=== PATIENT | female | born 1965 | race Caucasian/White ===

== ENCOUNTER → 2019-08-31 13:16 | Outpatient (BNVA) | payer SELFPAY | PROVIDERS: Family Provider Nurse Practitioner Family; PCP Nurse Practitioner Family; Visit Provider Anesthesiology | DX: G89.29 Other chronic pain (principal); M54.41 Lumbago with sciatica, right side; M54.42 Lumbago with sciatica, left side; M47.817 Spondylosis without myelopathy or radiculopathy, lumbosacral region; M51.37 Other intervertebral disc degeneration, lumbosacral region; Z79.891 Long term (current) use of opiate analgesic | CPT/HCPCS: 99213; 99214 ==

== ENCOUNTER 2019-10-06 12:28 | Outpatient (CLI) | payer SELFPAY ==
--- NOTE | 2019-10-06 13:45 | MR_ITS ---
WS: [id number] MRI BRAIN WITH AND WITHOUT CONTRAST HISTORY: headache, tremors COMPARISON: None available. TECHNIQUE: Multiplanar imaging performed through the brain with Prohance 17 ml's IV. No acute infarcts are seen. Zee-white matter differentiation is well preserved. There are a few scat tered T2 and FLAIR signal hyperintensities from chronic ischemic small vessel disease. No prior infar ct or hemorrhage. No susceptibility artifacts or prior lacunar infarcts. Ventricles and extra-axial spaces are normal. Clivus and pituitary gland are normal. Visualized posterior fossa and brainstem are also normal. Postcontrast images are negative for masses or vascular malformations. Dural venous sinuses are normal. Paranasal sinuses: Well aerated with no significant disease. Mastoid air cells: Normal. Calvarium and scalp: Normal. MR/MR head wo/w con [id number] IMPRESSION: 1. No acute infarct or hemorrhage. 2. Minimal chronic microvascular ischemic disease. 3. No mass or significant atrophy.
== END 2019-10-06 12:29 | disposition home or self-care (01) ==
PROVIDERS: Family Provider Nurse Practitioner Family; PCP Nurse Practitioner Family; Visit Provider Nurse Practitioner Family
DX: R25.1 Tremor, unspecified (principal); R51 Headache
CPT/HCPCS: 70553; A9579

== ENCOUNTER → 2019-10-19 12:05 | Outpatient (BNVA) | payer SELFPAY | PROVIDERS: Family Provider Nurse Practitioner Family; PCP Nurse Practitioner Family; Referring Provider Nurse Practitioner Family; Visit Provider Specialist | DX: R25.1 Tremor, unspecified (principal); M47.816 Spondylosis without myelopathy or radiculopathy, lumbar region | CPT/HCPCS: 99204; 99214 ==

== ENCOUNTER → 2019-10-28 08:22 | Outpatient (BNVA) | payer SELFPAY | PROVIDERS: Family Provider Nurse Practitioner Family; PCP Nurse Practitioner Family; Visit Provider Nurse Practitioner | DX: M54.42 Lumbago with sciatica, left side (principal); M54.41 Lumbago with sciatica, right side; Z79.891 Long term (current) use of opiate analgesic | CPT/HCPCS: 99213 ==

== ENCOUNTER → 2020-02-23 10:33 | Outpatient (BNVA) | payer SELFPAY | PROVIDERS: Family Provider Nurse Practitioner Family; PCP Nurse Practitioner Family; Visit Provider Nurse Practitioner | DX: M51.37 Other intervertebral disc degeneration, lumbosacral region (principal); M54.42 Lumbago with sciatica, left side; M54.41 Lumbago with sciatica, right side; Z79.891 Long term (current) use of opiate analgesic | CPT/HCPCS: 99213 ==

== ENCOUNTER → 2020-04-14 09:05 | Outpatient (BNVA) | payer SELFPAY | PROVIDERS: Family Provider Nurse Practitioner Family; PCP Nurse Practitioner Family; Visit Provider Nurse Practitioner | DX: G89.29 Other chronic pain (principal); M54.41 Lumbago with sciatica, right side; M54.42 Lumbago with sciatica, left side; M47.816 Spondylosis without myelopathy or radiculopathy, lumbar region; Z79.891 Long term (current) use of opiate analgesic | CPT/HCPCS: 99213 ==

== ENCOUNTER → 2020-06-16 08:53 | Outpatient (BNVA) | payer SELFPAY | PROVIDERS: Family Provider Nurse Practitioner Family; PCP Nurse Practitioner Family; Visit Provider Anesthesiology | DX: G89.29 Other chronic pain (principal); M54.41 Lumbago with sciatica, right side; M54.42 Lumbago with sciatica, left side; M47.816 Spondylosis without myelopathy or radiculopathy, lumbar region; M47.817 Spondylosis without myelopathy or radiculopathy, lumbosacral region; M51.37 Other intervertebral disc degeneration, lumbosacral region; Z79.891 Long term (current) use of opiate analgesic | CPT/HCPCS: 99214 ==

== ENCOUNTER → 2020-07-27 08:48 | Outpatient (BNVA) | payer SELFPAY | PROVIDERS: Family Provider Nurse Practitioner Family; PCP Nurse Practitioner Family; Visit Provider Anesthesiology | DX: G89.29 Other chronic pain (principal); M54.41 Lumbago with sciatica, right side; M54.42 Lumbago with sciatica, left side; M47.816 Spondylosis without myelopathy or radiculopathy, lumbar region; M47.817 Spondylosis without myelopathy or radiculopathy, lumbosacral region; M51.37 Other intervertebral disc degeneration, lumbosacral region; Z79.891 Long term (current) use of opiate analgesic | CPT/HCPCS: 99214 ==

== ENCOUNTER → 2020-09-28 10:28 | Outpatient (BNVA) | payer SELFPAY | PROVIDERS: Family Provider Nurse Practitioner Family; PCP Nurse Practitioner Family; Visit Provider Anesthesiology | DX: G89.29 Other chronic pain (principal); M54.41 Lumbago with sciatica, right side; M54.42 Lumbago with sciatica, left side; M47.817 Spondylosis without myelopathy or radiculopathy, lumbosacral region; M51.37 Other intervertebral disc degeneration, lumbosacral region; M47.816 Spondylosis without myelopathy or radiculopathy, lumbar region; Z79.891 Long term (current) use of opiate analgesic | CPT/HCPCS: 99213 ==

== ENCOUNTER → 2020-11-09 00:01 | Outpatient (BNVA) | payer SELFPAY | PROVIDERS: Family Provider Nurse Practitioner Family; PCP Nurse Practitioner Family; Visit Provider Nurse Practitioner Family | DX: Z01.89 Encounter for other specified special examinations (principal) | CPT/HCPCS: 81003 ==

== ENCOUNTER → 2020-11-09 10:23 | Outpatient (BNVA) | payer SELFPAY | PROVIDERS: Family Provider Nurse Practitioner Family; PCP Nurse Practitioner Family; Visit Provider Nurse Practitioner Family | DX: E11.9 Type 2 diabetes mellitus without complications (principal); Z79.891 Long term (current) use of opiate analgesic; E83.42 Hypomagnesemia; R53.1 Weakness; M54.41 Lumbago with sciatica, right side; M54.42 Lumbago with sciatica, left side; G89.29 Other chronic pain; M17.0 Bilateral primary osteoarthritis of knee | CPT/HCPCS: 80053; 80061; 81003; 82306; 83036; 83735; 84443; 85025 ==

== ENCOUNTER 2020-11-22 13:20 | Outpatient (CLI) | payer SELFPAY ==
--- NOTE | 2020-11-22 13:45 | MR_ITS ---
WS: [id number] MRI LUMBAR SPINE NONCONTRAST HISTORY: M51.37 - Other intervertebral disc degeneration, lumbosacral region COMPARISON: 09/15/2018 TECHNIQUE: Sagittal and axial multisequence imaging is submitted. Mild straightening of the normal lumbar lordosis. No marrow edema or fracture. Mild disc space narrowing and desiccation at L3-4 and L4-5. Conus terminates normally at L1. L1-L2: Normal. L2-L3: Normal. L3-L4: Mild annular disc bulging with mild ligamentum flavum hypertrophy and facet arthritis. Disc pr otrusion with annular fissure in the RIGHT foramen contacting the very undersurface of the L3 nerve r oot. Slight progression since the prior study. Small amount of fluid in the facet joints. L4-L5: Mild annular disc bulging and osteophytic ridging with ligamentum flavum hypertrophy. Mild adarsh tral and bilateral foraminal stenosis. Moderate encroachment into the lateral recesses with disc cont acting the L5 nerve roots in the lateral recesses. Very similar to the prior study. L5-S1: No stenosis. MR/MR lumbar spine wo con* [id number] IMPRESSION: 1. No significant progression of stenosis since the prior examination. 2. Moderate encroachment into the lateral recesses at L4-5 with mild contact o n the L5 nerve roots. 3. Broad-based disc protrusion with annular fissures in the RIGHT foramen of L 3-4 with mild contact on the L3 nerve root. 4. Mild foraminal stenosis on the RIGHT at L3-4. 5. Mild central and bilateral foraminal stenosis at L4-5.
== END 2020-11-22 13:21 | disposition home or self-care (01) ==
LOC: RADSHAW 13:22
PROVIDERS: Family Provider Nurse Practitioner Family; PCP Nurse Practitioner Family; Visit Provider Nurse Practitioner Family
DX: M51.37 Other intervertebral disc degeneration, lumbosacral region (principal); M48.061 Spinal stenosis, lumbar region without neurogenic claudication; M51.26 Other intervertebral disc displacement, lumbar region
CPT/HCPCS: 72148

== ENCOUNTER → 2020-11-29 13:04 | Outpatient (BNVA) | payer SELFPAY | PROVIDERS: Family Provider Nurse Practitioner Family; PCP Nurse Practitioner Family; Visit Provider Nurse Practitioner | DX: G89.29 Other chronic pain (principal); M54.41 Lumbago with sciatica, right side; M54.42 Lumbago with sciatica, left side; M47.817 Spondylosis without myelopathy or radiculopathy, lumbosacral region; M51.37 Other intervertebral disc degeneration, lumbosacral region; M17.0 Bilateral primary osteoarthritis of knee; Z79.891 Long term (current) use of opiate analgesic | CPT/HCPCS: 99213 ==

== ENCOUNTER → 2020-11-30 11:39 | Outpatient (BNVA) | payer SELFPAY | PROVIDERS: Family Provider Nurse Practitioner Family; PCP Nurse Practitioner Family; Visit Provider Nurse Practitioner Family | DX: E11.9 Type 2 diabetes mellitus without complications (principal); R94.4 Abnormal results of kidney function studies; M54.41 Lumbago with sciatica, right side; M54.42 Lumbago with sciatica, left side; G89.29 Other chronic pain; M51.36 Other intervertebral disc degeneration, lumbar region; L30.9 Dermatitis, unspecified | CPT/HCPCS: 81003; 82570; 84156 ==

== ENCOUNTER → 2020-12-05 13:28 | Outpatient (BNVA) | payer SELFPAY | PROVIDERS: Family Provider Nurse Practitioner Family; PCP Nurse Practitioner Family; Referring Provider Nurse Practitioner Family; Visit Provider Orthopaedic Surgery | DX: M54.42 Lumbago with sciatica, left side (principal) | CPT/HCPCS: 72110 ==

== ENCOUNTER 2020-12-18 06:00 | Outpatient (RCR) | payer SELFPAY | END 2020-12-22 23:59 | disposition home or self-care (01) | LOC: WPT 06:00 | PROVIDERS: Family Provider Nurse Practitioner Family; PCP Nurse Practitioner Family; Referring Provider Nurse Practitioner Family; Visit Provider Nurse Practitioner Family | DX: R53.1 Weakness (principal); M54.41 Lumbago with sciatica, right side; M54.42 Lumbago with sciatica, left side; G89.29 Other chronic pain | CPT/HCPCS: 97110; 97161 ==

== ENCOUNTER → 2021-01-09 08:21 | Outpatient (BNVA) | payer SELFPAY | PROVIDERS: Family Provider Nurse Practitioner Family; PCP Nurse Practitioner Family; Visit Provider Nurse Practitioner | DX: G89.29 Other chronic pain (principal); M54.41 Lumbago with sciatica, right side; M54.42 Lumbago with sciatica, left side; M47.817 Spondylosis without myelopathy or radiculopathy, lumbosacral region; M47.816 Spondylosis without myelopathy or radiculopathy, lumbar region; M25.552 Pain in left hip; M17.0 Bilateral primary osteoarthritis of knee; Z79.891 Long term (current) use of opiate analgesic | CPT/HCPCS: 99213 ==

== ENCOUNTER → 2021-03-06 08:53 | Outpatient (BNVA) | payer SELFPAY | PROVIDERS: PCP Nurse Practitioner Family; Visit Provider Nurse Practitioner | DX: G89.29 Other chronic pain (principal); M54.42 Lumbago with sciatica, left side; M54.41 Lumbago with sciatica, right side; M47.816 Spondylosis without myelopathy or radiculopathy, lumbar region; M47.817 Spondylosis without myelopathy or radiculopathy, lumbosacral region; M17.0 Bilateral primary osteoarthritis of knee; Z79.891 Long term (current) use of opiate analgesic | CPT/HCPCS: 99214 ==

== ENCOUNTER 2021-03-21 11:00 | Emergency (ER) | payer OTHER, SELFPAY ==
[2021-03-21 12:31] VITALS: BP 154/89; PULSE 81; RESP 16; TEMP 37.2; O2SAT 100; BMI 30.4
[2021-03-21 16:25] LABS: Basophils % 0.5 %; Eosinophils # 0.1 10^3/uL (0.0-0.8); Eosinophils % 1.9 %; Hematocrit 48.5 % (37.0-47.0); Hemoglobin 15.6 g/dL (11.5-15.3); Lymphocytes # 1.5 10^3/uL (0.8-4.8); Lymphocytes % 25.6 %; Mean Corpuscular HGB Conc 32.2 g/dL (30.0-36.0); Mean Corpuscular Hemoglobin 30.3 pg (28.0-34.0); Mean Corpuscular Volume 94.2 fL (81-99); Mean Platelet Volume 11.4 fL (7.4-10.4); Monocytes # 0.5 10^3/uL (0.2-0.9); Monocytes % 9.2 %; Neutrophils # 3.68 10^3/uL (1.8-7.7); Neutrophils % 62.6 %; Nucleated Red Blood Cells % 0 %; Platelet Count 285 10^3/cmm (130-400); Red Blood Count 5.15 10^6/uL (4.1-5.3); Red Cell Distribution Width 12.6 % (12.1-15.1); White Blood Count 5.9 10^3/uL (4.0-10.0)
[2021-03-21 16:58] LABS: Alanine Aminotransferase 14 U/L (0-33); Albumin Level 4.5 g/dL (3.5-5.2); Alkaline Phosphatase 69 IU/L (35-105); Anion Gap 16.2 (5-19); Aspartate Amino Transferase 13 U/L (0-32); Blood Urea Nitrogen 15 mg/dL (6-20); Calcium 9.2 mg/dL (8.5-10.5); Carbon Dioxide 26 mmol/L (22-29); Chloride 103 mmol/L (98-107); Globulin 3.1 g/dL (1.3-4.6); Glomerular Filtration Rate 86.6 mL/min (90-130); Glucose 161 mg/dL (65-115); Osmolality Calculated 296 mOsm/kg (285-295); Potassium 4.2 mmol/L (3.5-5.1); Sodium 141 mmol/L (136-145); Total Bilirubin 0.5 mg/dL (0.15-1.2); Total Protein 7.6 g/dL (6.6-8.7)
--- NOTE | 2021-03-21 17:30 | W.ED.ABDPA2 ---
HPI - Abdominal Pain General: Chief Complaint: Abdominal Pain Stated Complaint: NAUSEA, DIZZINESS Time Seen by Provider: 03/21/21 17:28 History of Present Illness: HPI narrative: Patient is a 55-year-old female comes to the ED with abdominal pain nausea. Patient says symptoms started approximately 2 weeks ago. She says over the last week her symptoms have gotten worse and more consistent. She has been unable to keep any food or fluids down. She says her abdominal pain is in the right upper quadrant and she rates it a 9 out of 10 currently. Denies any fever, shortness of breath, chest pains, bowel symptoms or hematuria. Denies any history of gallbladder issues. Associated Symptoms: Reports nausea and vomiting; Denies chills, constipation, diarrhea, dysuria, fever(s), hematochezia and hematuria Review of Systems Const: Denies: fever(s), chills or fatigue Eyes: Denies: change in vision or eye discomfort ENMT: Denies: throat pain, odynophagia, nasal discharge or nasal congestion Card: Denies: chest pain, palpitations, edema, swelling of feet/ankles, dyspnea on exertion or orthopnea Resp: Denies: dyspnea, productive cough or non-productive cough GI: Reports: abdominal pain, nausea and vomiting; Denies: diarrhea, constipation or hematochezia : Denies: flank pain, dysuria or hematuria Musc: Denies: neck pain, back pain or extremity swelling Skin/Breast: Denies: rash or new lesions Neuro: Denies: headache(s), numbness in extremities or weakness in extremities PFS ED PFSH: Medical History Acute bilateral low back pain with left-sided sciatica Anxiety and depression Chronic midline low back pain with bilateral sciatica Decreased GFR Diabetes mellitus, type II Encounter for long-term use of opiate analgesic Essential hypertension Generalized weakness Hypomagnesemia Lumbosacral spondylosis without myelopathy Mixed hyperlipidemia Opioid contract exists Osteoarthritis of knees, bilateral Other intervertebral disc degeneration, lumbosacral region Psoriasiform dermatitis Patient has hisotry of psoriasis with patches occuring on scalp and knees. Surgical History History of hysterectomy Family History Mother Cancer Hypertension Other CAD (coronary artery disease) Diabetes Stroke Social History Smoking and tobacco status: never smoked Second hand smoke exposure: No Alcohol intake: current Alcohol intake frequency: holidays/special occasions only History of recent travel: No Physical Exam Const: COMMON NORMALS: no acute distress, patient oriented x3 and alert GENERAL APPEARANCE: cooperative and comfortable HENMT: COMMON NORMALS: normocephalic HEAD & SCALP: normocephalic MOUTH: Normal oral and palatal mucosa present THROAT: posterior oropharynx normal and uvula midline Neck/C-Spine: COMMON NORMALS: supple GENERAL: Yes normal visual inspection Resp: COMMON NORMALS: normal respiratory effort, No retractions, No use of accessory muscles and clear to auscultation bilaterally AUSCULTATION: clear to auscultation bilaterally Cardio: COMMON NORMALS: regular rate, regular rhythm, S1 normal heart sound present, S2 normal heart sound present, No gallops present (Cardio), No clicks present (Cardio), No murmurs present (Cardio) and Peripheral pulses 2+ throughout RATE: regular rate RHYTHM: regular rhythm HEART SOUNDS: S1 normal heart sound present and S2 normal heart sound present PERIPHERAL PULSES: Peripheral pulses 2+ throughout GI: COMMON NORMALS: Normal to inspection, nondistended, normoactive bowel sounds present, Soft to palpation and no masses PALPATION: Yes Soft to palpation and Yes Tenderness to palpation present (GI) Details: RUQ (Positive Reeder sign) : COMMON NORMALS: Yes no CVA tenderness BLADDER/KIDNEY EXAM: Yes no CVA tenderness Back/Pelvis: COMMON NORMALS: no CVA tenderness Neuro: COMMON NORMALS: patient oriented x3 SENSORIUM/ORIENTATION: Yes alert GAIT: Yes Normal gait present Skin: GENERAL SKIN EXAM: dry skin Course Vital Signs: Vital signs: Vital Signs Temperature 98.9 F 03/21/21 12:31 Pulse Rate 85 03/21/21 17:54 Respiratory Rate 17 03/21/21 22:18 Blood Pressure 142/77 03/21/21 22:18 Pulse Oximetry 95 03/21/21 22:18 MDM - Abdominal Pain MDM Narrative: Medical decision making narrative: Patient is a 55-year-old female comes to the ED with right upper quadrant abdominal pain nausea and vomiting. Exam showed a patient with right upper quadrant abdominal tenderness and positive Reeder sign. Vitals were stable. All labs were unremarkable. Ultrasound of the gallbladder showed cholelithiasis but no signs of any acute cholecystitis and CBD was normal. Patient's symptoms of nausea and pain improved with IV fluids, Reglan and morphine. I told patient I can put in a referral to general surgery, but patient says she did not want that I would rather follow-up with her primary care physician and then get a referral from them if needed. Patient was diagnosed with cholelithiasis and discharged home with a prescription for Reglan. Patient currently has a prescription for oxycodone and I told her to take that as needed for pain. Told her to be on a clear liquid diet and advance it as tolerated. Follow-up with PCP in 7 days for reevaluation. Return to ED precautions given. Patient understood and agree with plan. Lab Data: Attestation: I reviewed the patient's lab results. Labs: Lab Results 03/21/21 03/21/21 Range/Units 16:00 16:00 WBC 5.9 (4.0-10.0) 10^3/ uL RBC 5.15 (4.1-5.3) 10^6/u L Hgb 15.6 H (11.5-15.3) g/dL Hct 48.5 H (37.0-47.0) % MCV 94.2 (81-99) fL MCH 30.3 (28.0-34.0) pg MCHC 32.2 (30.0-36.0) g/dL RDW 12.6 (12.1-15.1) % Plt Count 285 (130-400) 10^3/c mm MPV 11.4 H (7.4-10.4) fL Neut % (Auto) 62.6 % Lymph % (Auto) 25.6 % Sumner % (Auto) 9.2 % Eos % (Auto) 1.9 % Baso % (Auto) 0.5 % Neut # (Auto) 3.68 (1.8-7.7) 10^3/u L Lymph # (Auto) 1.5 (0.8-4.8) 10^3/u L Sumner # (Auto) 0.5 (0.2-0.9) 10^3/u L Eos # (Auto) 0.1 (0.0-0.8) 10^3/u L Baso # (Auto) 0.0 (0.0-0.1) 10^3/u L Nucleated RBC % (a uto) 0 % Nucleated RBCs # 0.0 /100WBC Sodium 141 (136-145) mmol/L Potassium 4.2 (3.5-5.1) mmol/L Chloride 103 (98-107) mmol/L Carbon Dioxide 26 (22-29) mmol/L Anion Gap 16.2 (5-19) BUN 15 (6-20) mg/dL Creatinine 0.7 (0.5-0.9) mg/dL GFR Calculation 86.6 L (90-130) mL/min Glucose 161 H (65-115) mg/dL Calculated Osmolal ity 296 H (285-295) mOsm/k g Calcium 9.2 (8.5-10.5) mg/dL Total Bilirubin 0.5 (0.15-1.2) mg/dL AST 13 (0-32) U/L ALT 14 (0-33) U/L Alkaline Phosphata se 69 (35-105) IU/L Total Protein 7.6 (6.6-8.7) g/dL Albumin 4.5 (3.5-5.2) g/dL Globulin 3.1 (1.3-4.6) g/dL Imaging Data ^: US: Attestation: I personally reviewed and interpreted this imaging study as follows: Radiologist's impression: [address] [address] Ultrasound Report Signed Patient: Yudith Fenton Unit #: [id number] : 1965 Age/Sex: 55 / F ADM Date: 03/21/21 Loc: ER Room/Bed: Attending Dr: Ordering Provider/Ordering MD: Jimmy Argueta Date of Service: 03/21/21 Procedure(s): US gall bladder [id number] Accession Number(s): [id number] Report Number: [id number] PROCEDURE INFORMATION: Exam: US Abdomen, Limited; Right Upper Quadrant Exam date and time: 03/21/2021 5:36 PM Age: 55 years old Clinical indication: Abdominal pain; Acute; Additional info: Ruq pain and n/v TECHNIQUE: Imaging protocol: US abdomen. Real time ultrasound with image documentation. Limited exam focused on the right upper quadrant. COMPARISON: MR lumbar spine wo con* [id number] 11/22/2020 1:59 PM FINDINGS: Liver: Normal. No masses. Gallbladder: Cholelithiasis. Negative for abnormal gallbladder wall thickening. No pericholecystic fluid. Common bile duct: Normal. No stones. No dilation. Pancreas: Visualized pancreas is unremarkable. Right kidney: Normal. No mass. No hydronephrosis. US/US gall bladder [id number] IMPRESSION: 1. Cholelithiasis. 2. Negative for biliary obstruction. 3. No convincing ultrasound evidence of acute cholecystitis. Dictated By: Jerry Ansari Signed By: Jerry Ansari Signed Date/Time: 03/21/212002 DD/ 01 Discharge Plan Discharge Patient Disposition: Home Clinical Impression: Cholelithiasis Qualifiers: Cholelithiasis location: gallbladder Cholecystitis presence: without cholecystitis Biliary obstruction: without biliary obstruction Qualified Code(s): K80.20 - Calculus of gallbladder without cholecystitis without obstruction Condition: Stable Prescriptions: New metoclopramide HCl 10 mg tablet 10 mg PO Q6H PRN (Reason: nausea and vomiting) Qty: 20 RF: 0 No Action baclofen 10 mg tablet 10 mg PO TID Qty: 90 RF: 0 oxycodone 10 mg tablet 10 mg PO TID PRN (Reason: pain) 30 Days Qty: 90 RF: 0 oxycodone 10 mg tablet 10 mg PO TID PRN (Reason: pain) 30 Days Qty: 90 RF: 0 lovastatin 20 mg tablet 20 mg PO DAILY PRNRF: 0 magnesium gluconate 500 mg tablet 500 mg PO DAILY RF: 0 turmeric root extract 500 mg capsule 500 mg PO DAILY RF: 0 betamethasone acet,sod phos 6 mg/mL suspension 6 mg IM ONCE Qty: 1 RF: 0 ketorolac 30 mg/mL solution 60 mg IM ONCE Qty: 2 RF: 0 metformin 1,000 mg tablet extended release 24hr 1,000 mg PO BID 90 Days Qty: 180 RF: 1 trazodone 50 mg tablet See Rx Instructions .ROUTE .COMPLEX Qty: 30 RF: 5 judy Hsieh (DME) See Rx Instructions .Route Qty: 1 RF: 0 ibuprofen 800 mg tablet See Rx Instructions .ROUTE .COMPLEX Qty: 60 RF: 0 propranolol 10 mg tablet See Rx Instructions .ROUTE .COMPLEX Qty: 90 RF: 1 Jardiance 25 mg tablet See Rx Instructions .ROUTE .COMPLEX Qty: 90 RF: 0 duloxetine 60 mg capsule,delayed release(DR/EC) 60 mg PO DAILY 30 Days Qty: 30 RF: 2 Discharge Orders: Discharge ED (Routine); Ordered 03/21/21 Ordered By: Jimmy Argueta Referrals: VERN Patel, MEASUREMENT AND SENSING TECHNICIAN [Primary Care Provider] - Discharge Diet: Advance as tolerated and Clear Liquid Discharge Activity: Increase activity as tolerated Patient Instructions: Cholelithiasis, Biliary Colic (ED) Activity Restrictions/Additional Instructions: Follow-up with medical provider as directed in 5 to 7 days for reevaluation. Take medications as prescribed. Take your previously prescribed oxycodone med as needed for any pain. Start with a clear liquid diet and advance as tolerated. Return to the ER or your medical provider if condition worsens. Please read and understand discharge instructions. Thank you for choosing [facility] for your healthcare needs today. Please realize this is an emergency room and that we are providing you with a medical screening exam and this may not be complete and all inclusive of all the testing and or work up that you may need to determine your ailment or severity of your illness. It is very important that you follow up as instructed or that you return to the Emergency Department should you have concerns or if your condition changes or worsens in any way. Coding Level of Care Code ED Seed Trucker for Francheska Bettencourt Exam Comprehensive
--- NOTE | 2021-03-21 17:36 | USR_ITS ---
PROCEDURE INFORMATION: Exam: US Abdomen, Limited; Right Upper Quadrant Exam date and time: 03/21/2021 5:36 PM Age: 55 years old Clinical indication: Abdominal pain; Acute; Additional info: Ruq pain and n/v TECHNIQUE: Imaging protocol: US abdomen. Real time ultrasound with image documentation. Limited exam focused on the right upper quadrant. COMPARISON: MR lumbar spine wo con* [id number] 11/22/2020 1:59 PM FINDINGS: Liver: Normal. No masses. Gallbladder: Cholelithiasis. Negative for abnormal gallbladder wall thickening. No pericholecystic fluid. Common bile duct: Normal. No stones. No dilation. Pancreas: Visualized pancreas is unremarkable. Right kidney: Normal. No mass. No hydronephrosis. US/US gall bladder [id number] IMPRESSION: 1. Cholelithiasis. 2. Negative for biliary obstruction. 3. No convincing ultrasound evidence of acute cholecystitis.
[2021-03-21 17:54] VITALS: BP 173/76; PULSE 85; O2SAT 98
[2021-03-21] MEDS: morphine 4 mg/mL SDV 1 mL IVP (17:55)
[2021-03-21] MEDS: ondansetron 2 mg/ML SDV 2 mL 4 MG IVP (17:55)
[2021-03-21] MEDS: sodium chloride 0.9% 1,000 ML 999 ML IV (17:55)
[2021-03-21 19:00] VITALS: BP 140/67; RESP 18; O2SAT 99
[2021-03-21 20:00] VITALS: BP 140/70; O2SAT 96
[2021-03-21] MEDS: sodium chloride 0.9% 500 ML 999 ML IV (20:20)
[2021-03-21] MEDS: metoclopramide 5 mg/mL SDV 2 mL 10 MG IVP (20:20)
[2021-03-21 20:30] VITALS: BP 142/77; RESP 17; O2SAT 95
[2021-03-21 22:18] VITALS: BP 142/77; RESP 17; O2SAT 95
== END 2021-03-21 21:30 | disposition home or self-care (01) ==
PROVIDERS: Physician Assistant; Emergency Provider Physician Assistant; PCP Nurse Practitioner Family
DX: K80.20 Calculus of gallbladder without cholecystitis without obstruction (principal); E11.9 Type 2 diabetes mellitus without complications; I10 Essential (primary) hypertension; E78.2 Mixed hyperlipidemia; Z79.84 Long term (current) use of oral hypoglycemic drugs
CPT/HCPCS: 76705; 80053; 85025; 96361; 96374; 96375; 99284; J2270; J2405; J2765; J7030; J7040

== ENCOUNTER → 2021-03-28 12:51 | Outpatient (BNVA) | payer OTHER, SELFPAY | PROVIDERS: PCP Nurse Practitioner Family; Visit Provider Surgery | DX: Z01.812 Encounter for preprocedural laboratory examination (principal); Z20.822 Contact with and (suspected) exposure to COVID-19 | CPT/HCPCS: 87635 ==

== ENCOUNTER → 2021-04-02 10:46 | Outpatient (BNVA) | payer OTHER, SELFPAY | PROVIDERS: PCP Nurse Practitioner Family; Visit Provider Nurse Practitioner Family | DX: E11.9 Type 2 diabetes mellitus without complications (principal); E78.2 Mixed hyperlipidemia; R11.2 Nausea with vomiting, unspecified; M47.816 Spondylosis without myelopathy or radiculopathy, lumbar region; M54.42 Lumbago with sciatica, left side; M79.601 Pain in right arm; G89.29 Other chronic pain; K80.20 Calculus of gallbladder without cholecystitis without obstruction | CPT/HCPCS: 80061; 81003; 83036; 83735; 84100 ==

== ENCOUNTER 2021-04-10 06:00 | Outpatient (RCR) | payer OTHER, SELFPAY | END 2021-04-24 23:59 | disposition home or self-care (01) | LOC: WPT 06:00 | PROVIDERS: PCP Nurse Practitioner Family; Referring Provider Nurse Practitioner Family; Visit Provider Nurse Practitioner Family | DX: M79.601 Pain in right arm (principal); G89.29 Other chronic pain; M54.42 Lumbago with sciatica, left side | CPT/HCPCS: 97162 ==

== ENCOUNTER → 2021-04-26 09:41 | Outpatient (BNVA) | payer OTHER, SELFPAY | PROVIDERS: PCP Nurse Practitioner Family; Visit Provider Surgery | DX: K80.20 Calculus of gallbladder without cholecystitis without obstruction (principal); Z20.822 Contact with and (suspected) exposure to COVID-19 | CPT/HCPCS: 87635 ==

== ENCOUNTER 2021-05-01 07:21 | Day surgery (SDC) | payer OTHER, SELFPAY ==
[2021-04-27 15:43] VITALS: BMI 30.4
[2021-05-01] VITALS (21 sets, daily range): BP systolic 119–204; BP diastolic 72–141; PULSE 73–90; RESP 13–30; TEMP 36.3–36.8; O2SAT 18–100
--- NOTE | 2021-05-01 08:16 | P.ANESASSM_ITS ---
Pre-Anesthetic Assessment Pre-Anesthetic Assessment: Height/Weight: Height 1.73 m Weight 90.718 kg Temp Pulse Resp BP Pulse Ox 97.4 F L 73 16 130/88 100 05/01/21 07:45 05/01/21 07:45 05/01/21 07:45 05/01/21 07:45 05/01/21 07:45 Preop Diagnosis: Symptomatic cholelithiasis Proposed Procedure: Operation Date: 05/01/21 09:25 Proposed Procedures p Laparoscopic Cholecystectomy 36533 K80.20(Not Applicable) - Martínez Chan MD Familial anesthetic complications: None Was Beta Floyd taken within 24 hours: Yes Was Clonidine taken within 24 hours: N/A Last intake: > 8 hrs Social: Social History: No alcohol and No tobacco Exam: Pre-Anes Outpt Exam: alert, oriented x 3, clear to auscultation bilaterally and regular rate & rhythm Airway: Cervical ROM: WNL MP: 4 Dentition: False (uppers) CV/HEM: CV/HEM: HTN Metabolic: Metabolic: DM and Hyperlipidemia Comments: BG 86 Musc/skel: Musc/skel: Lower Back Pain (chronic pain) Anesthetic Plan: ASA status: 3 Anesthesia: General Risk of > 500 ml blood loss (7ml/kg in children): No PFSH Anesthesia PFSH: Medical History (Updated 04/10/21 @ 10:33 by MARISABEL Barnes) Acute bilateral low back pain with left-sided sciatica Anxiety and depression Cholelithiases Chronic midline low back pain with bilateral sciatica Chronic pain of left upper extremity Decreased GFR Diabetes mellitus, type II Encounter for long-term use of opiate analgesic Essential hypertension Generalized weakness Hypomagnesemia Lumbosacral spondylosis without myelopathy Mixed hyperlipidemia Nausea & vomiting Opioid contract exists Osteoarthritis of knees, bilateral Other intervertebral disc degeneration, lumbosacral region Psoriasiform dermatitis Patient has hisotry of psoriasis with patches occuring on scalp and knees. Surgical History History of hysterectomy Family History Mother Cancer Hypertension Other CAD (coronary artery disease) Diabetes Stroke Social History Second hand smoke exposure: No Alcohol intake: current Alcohol intake frequency: holidays/special occasions o nly History of recent travel: No Data Anesthesia Cardiac Studies: No Data to Display
[2021-05-01 08:17] LABS: Glucose Point of Care 86 mg/dL (70-110)
[2021-05-01] MEDS: sodium chloride 0.9% 1,000 ML 30 ML IV (08:34)
[2021-05-01] MEDS: acetaminophen 1,000 MG/100 ML PIGGYBACK 400 MG IV (08:40)
[2021-05-01] MEDS: scopolamine 1.5 Patch 1 PATCH TRANSDERMA (08:56)
--- NOTE | 2021-05-01 09:07 | W.PM.OPSUD ---
Surgery/Procedure H&P Update DATE OF PROCEDURE: May 01, 2021 DATE H&P PERFORMED: 04/05/21 H&P UPDATE INFORMATION: I have reviewed H&P completed within last 30 days, I have examined patient prior to procedure and No changes to prior documentation PREOP DIAGNOSIS: Symptomatic cholelithiasis PRIMARY INDICATION FOR PROCEDURE: The same PLANNED PROCEDURE: Operation Date: 05/01/21 09:25 Proposed Procedures p Laparoscopic Cholecystectomy 31860 K80.20(Not Applicable) - Martínez Chan MD
[2021-05-01] MEDS: ampicillin-sulbactam 3 GM in sodium chloride 0.9% (plus) 50 ML IV (09:26)
[2021-05-01] MEDS: lidocaine 2% INJ 20 mL INJECTION (09:54)
--- NOTE | 2021-05-01 10:27 | P.OP_ITS ---
Operative Report Date of procedure: May 01, 2021 Pre-op Diagnosis: Symptomatic cholelithiasis Post-op diagnosis: same Post-op Findings: Chronic calculus cholecystitis Procedure Done: Laparoscopic cholecystectomy Implants: Small pieces of Surgicel at the gallbladder fossa and onto the anterior surface of the first part of the duodenum Specimens removed/disposition: Gallbladder and contents Surgeon: Martínez Chan Aircraft Body Repairer: Surgical techs Flako and Jose Miguel transfill technician student Laura Circulating nurses Amarilis and Savi Anesthesia: General (nurse practitioner manager Suri) Estimated blood loss (mL): 10 IV fluids (mL): 800 Condition: stable Disposition: same day Brief History: Symptomatic cholelithiasis Procedure: Patient was identified in the holding area and taken back to the operative suite, placed in supine position intubated by anesthesia . Time-out was done verifying the patient's name/date of /planned procedure and destination after the procedure, all were in agreement. SCDs confirmed to be functioning, preoperative antibiotics administered per protocol, and beta iram protocol was confirmed. Patient was appropriately secured to the table, footboard was applied to the OR table, before prep and drape anesthesia was asked to tilt the table back and forth to make sure that the patient is appropriately secured and she was. Prep and drape of the abdomen was done under the usual sterile technique, followed by that supraumbilical skin incision,skin incision was done by a 15 blade knife, and stay sutures were applied to the fascia and Davila trocar technique was used to enter the abdominal without injuring any abdominal viscera, started by low flow gas insufflation followed by a high flow, started with a 10 mm laparoscope and under direct vision there was no evidence of any injuries, the scope then switched to a 30? ,10 millimeter scope and under direct visualization 5 millimeter trocar was inserted in the epigastric region followed by two 5 mm trocars were inserted in the right upper quadrant that was done after injection of local lidocaine 2% at all incision sites. Gallbladder showed chronic calculus cholecystitis &with adhesions attached to the first part of the duodenum, adhesions were taken down gently, minor oozing that was cauterized and the duodenum was safeguarded during cauterization and towards the end of the case is piece of Surgicel was applied. Patient was then positioned in the head up and tilted to the left Ratcheted forceps were introduced into the lateral most 5mm port and was applied unto the fundus of the gallbladder cephalad and using Bullet forceps the infundibulum of the gallbladder was retracted laterally. Using [place] forceps then L-hook cautery to dissect the peritoneum overlying the Calot's triangle which was then opened medially and laterally until the cystic duct and the cystic artery were skeletonized. Dissection was carried along the body of the gallbladder and after ensuring critical view of safety was identfied. Cystic duct and cystic artery where seen connected to the gallbladder. Clips were applied on the cystic duct towards the common bile duct 1 towards the gallbladder then divided is in sharp scissors, 2 clips were then applied onto the cystic artery and 1 towards the gallbladder and divided by sharp scissors. Additional clips were traversing vessels were applied Dissection was then carried along of the gallbladder from the gallbladder fossa using cautery as well as sharp dissection with heat energy. The gallbladder then was dissected out from the gallbladder fossa totally , cholecystectomy was then achieved and was placed in an Endo Catch bag with associated stones and then retrieved from the Davila trocar site under direct visualization using a 5 mm 30? scope through the epigastric trocar, specimen was then passed to the circulating nurse to go for permanent pathology,irrigation and hemostasis was done to the gallbladder fossa after hemostasis was secured, final survey laparoscopy was done that showed no injuries. During dissection inadvertent opening of the gallbladder showed couple of stones in the field, the gallbladder specimen and the stones were retrieved and passed for permanent pathology. Suction irrigation was obtained The supraumbilical fascial defect was then closed using interrupted #1 PDS sutures using a fascial closure device ;Juan Newman under direct vi sualization Gas was allowed to deflate,Trocars were then taken out under direct vision there was no evidence of bleeding Specimen was passed to the circulating nurse for permanent pathology. No drains were placed and the supraumbilical incision as well as all trocar sites were closed by by 4-0 Monocryl to approximate the skin edges of the supraumbilical incision, dressing was applied in the form of Dermabond and the patient patient got extubated and was taken to recovery area in a stable condition. Count of sponges, needles and instruments were completed at the end of the procedure I was present for the whole entire procedure.
[2021-05-01] MEDS: fentaNYL 50 mcg/mL INJ 2mL IVP ×3 (10:57→11:15)
[2021-05-01] MEDS: labetalol 5 mg/mL SDV 20mL IVP (11:21)
[2021-05-01] MEDS: HYDROmorphone 1 mg/mL INJ 1 mL 0.5 MG IVP ×2 (11:26→11:49)
[2021-05-01] MEDS: oxyCODONE 5 mg IR Tab/Cap 10 MG PO (12:55)
--- NOTE | 2021-05-01 13:35 | SUR.PHASEI ---
1043 PT TO PACU RESTLESS ROLLING IN BED PUSHING STAFF AND BED RAILS, RESTLESS BUT NOT ALERT , DOES NOT FOLLOW COMMAND, PT RUBBING FACE, MOANING ROLLING SIDE TO SIDE, SEE MED GIVEN PER VESTA PRO FOR PAIN ON ARRIVAL, PT REPEATEDLY REORIENTED, PT ABD SOFT WITH 4 SITES WITH DERMABOND, PT IV AT MOD TO FAST RATE WHILE GIVING MEDS PT BP VERY ELEVATED BUT MAY BE PAIN OR THE FACT THAT PT IS MOVING AND TENSING AGAINST THE BP CUFF. 1121 PT BP REMAINS VERY ELEVATED EVEN AFTER MULTIPLE IV PAIN MEDS SEE BP MED GIVEN ORDERED, HR IN 80'S SR. 1149 PT HAS CONTINURED TO MOAN AND TENSE UP WITH PAIN SINCE ADMIT , PT MORE RELAXED NOW BUT STILL MOANS AND HOLDS ABD, BP BETTER NOW PT IN SR NO ECTOPY NOTED. SEE EARLIER PAIN MEDS PT DENIES NAUSEA AND NOW IS AAOX3 VSS 1205 PT DOZING OFF AND ON NOW, REPORT TO OPS NURSE AT BEDSIDE, VSS.
--- NOTE | 2021-05-01 15:37 | ANE.PACU2 ---
Inpatient post-anesthesia follow up: Airway intact: Yes Vital signs: Temperature 98.0 F Pulse Rate 76 Respiratory Rate 18 Blood Pressure 165/112 Pulse Oximetry 99 Oxygen Delivery Me thod Nasal Cannula Oxygen Flow Rate 2 Fraction of Inspir ed Oxygen Hydration adequate: Yes Nausea and vomiting: No Pain level: 2 Mental status: Baseline
== END 2021-05-01 14:20 | disposition home or self-care (01) ==
PROVIDERS: PCP Nurse Practitioner Family; Visit Provider Surgery
PROC: 0FT44ZZ Resection of Gallbladder, Percutaneous Endoscopic Approach (ICD-10-PCS; CPT 47562; principal; 2021-05-01 09:15)
DX: K80.10 Calculus of gallbladder with chronic cholecystitis without obstruction (principal); I10 Essential (primary) hypertension; E11.9 Type 2 diabetes mellitus without complications; M54.5 Low back pain; G89.29 Other chronic pain; Z79.891 Long term (current) use of opiate analgesic; E78.2 Mixed hyperlipidemia; Z82.49 Family history of ischemic heart disease and other diseases of the circulatory system; Z83.3 Family history of diabetes mellitus; Z82.3 Family history of stroke
CPT/HCPCS: 47562; 36416; 82962; 88304; J0295; J1100; J1170; J2405; J2704; J2710; J3010; J3490; J7030

== ENCOUNTER → 2021-05-25 09:17 | Outpatient (BNVA) | payer OTHER, SELFPAY | PROVIDERS: PCP Nurse Practitioner Family; Visit Provider Nurse Practitioner | DX: G89.29 Other chronic pain (principal); M54.41 Lumbago with sciatica, right side; M54.42 Lumbago with sciatica, left side; M47.817 Spondylosis without myelopathy or radiculopathy, lumbosacral region; M47.816 Spondylosis without myelopathy or radiculopathy, lumbar region; M51.37 Other intervertebral disc degeneration, lumbosacral region; M79.602 Pain in left arm; Z79.891 Long term (current) use of opiate analgesic | CPT/HCPCS: 99213 ==

== ENCOUNTER → 2022-01-28 08:54 | Outpatient (BNVA) | payer OTHER, SELFPAY | PROVIDERS: PCP Nurse Practitioner Family; Visit Provider Nurse Practitioner | DX: E11.9 Type 2 diabetes mellitus without complications (principal); R53.83 Other fatigue; R07.9 Chest pain, unspecified; M79.602 Pain in left arm; G89.29 Other chronic pain; M17.0 Bilateral primary osteoarthritis of knee; M47.816 Spondylosis without myelopathy or radiculopathy, lumbar region; M47.817 Spondylosis without myelopathy or radiculopathy, lumbosacral region; M54.41 Lumbago with sciatica, right side; M54.42 Lumbago with sciatica, left side; E78.2 Mixed hyperlipidemia; K59.00 Constipation, unspecified | CPT/HCPCS: 80053; 80061; 82306; 83036; 84443; 85025 ==

== ENCOUNTER 2022-06-13 09:26 | Outpatient (CLI) | payer OTHER, SELFPAY ==
[2022-06-13 10:47] VITALS: BMI 29.5
--- NOTE | 2022-06-13 10:47 | ECG_ITS ---
[facility] Test Date: 2022-06-13 Pat Name: Yudith Fenton Department: Room: Gender: Female [employer]ylinder [employer] Operator: Deisy Ferguson : 1965 Requested By: Jennifer Hoffmann Order Number: [id number] Bonita MD: Jennifer Hoffmann M.D. Interpretive Statements NAME OF STUDY: LEXISCAN SESTAMIBI STRESS TEST INDICATION: Chest Pain PROCEDURE: At the baseline, the blood pressure was 144/86 mmHg with a heart rate of 63 bpm. The electrocardiogram showed normal sinus rhythm, normal axis with nonspecific T wave changes in inferior leads. The Lexiscan was infused over a period of 20 seconds. A total of 0.4 milligrams of Lexiscan was infused. The stress phase was continued for a total of 5 minutes. Heart rate at the end of the stress phase was 78 beats per min with a blood pressure of 150/85 mmHg. The EKG at the peak infusion revealed sinus rhythm with no significant ST-T wave changes. The study was terminated due to protocol completion. Sestamibi was injected 20 seconds after the Lexiscan infusion. Blood pressure at the end of the recovery phase was 137/83 mmHg with a heart rate of 72 beats per minute. CONCLUSION: 1. No significant EKG changes with the LexiScan infusion. 2. No LexiScan induced chest pain or cardiac arrhythmia. 3. Normal blood pressure and heart rate response. 4. Sestamibi/sestamibi perfusion scan pending; see separate report. Electronically Signed On 06-17-2022 13:21:16 CDT by Jennifer Hoffmann M.D. [id number]
--- NOTE | 2022-06-13 10:47 | NMCV_ITS ---
NM katt perf SPECT r/s* [id number] Yudith Fenton Age: 56 Gender: F : 1965 Exam Date: 06/13/2022 11:07 Ordering Phys: Jennifer Hoffmann MD ([email or web address]) Technologist: RENATA Lo Exam Location: [facility] Indications: CHEST PAIN STRESS TEST Please see separate stress test report in [facility] for full findings IMAGE PROTOCOL Rest/Stress 1 Lexiscan Day Radiopharmaceutical Dose (mCi) Administration Site Administered by Rest: Tc-99m 10.8 IV RENATA Downing Sestamibi Stress:Tc-99m 32.9 IV RENATA Downing Sestamibi Rest: 13-Jun-2022 60 Discovery 630 Stress: 13-Jun-2022 30 Discovery 630 0.4mg Lexiscan. Supine position only as patient was unable to lay prone. SPECT RESULTS Technical Quality: Excellent Raw Data Analysis: Normal Image Corrections: No attenuation or motion correction applied Summed Stress Score: 3 Summed Rest Score: 1 Summed Difference Score: 3 PERFUSION FINDINGS Small sized perfusion abnormality of mild severity of mid anterior wall on rest images with improved tracer uptake in mid anterior wall on stress images but reversibility noted in mid inferolateral, apical lateral and apical anterior king. FUNCTIONAL RESULTS (calculated via Gated SPECT) Stress Image LV EF (%): 73 Stress EDV (mL):84 TID: 0.94 Stress ESV (mL):23 FUNCTIONAL FINDINGS: The left ventricle is normal in size. Transient Ischemia Dilatation of 0.94. There is normal left ventricular systolic function. The left ventricular ejection fraction is normal with a value of 73%. Normal end-diastolic and end-systolic volumes. IMPRESSIONS 1. Small sized reversible perfusion abnormality of mid inferolateral, apical lateral and apical anterior king. This may represent small area of ischemia in circumflex artery territory. In absence of prone imaging attenuation artifact cannot be completely ruled out. 2. Overall left ventricular systolic function is normal without regional wall motion abnormalities, LVEF=73%. 3. EKG portion of the study will be reported separately. Jennifer Hoffmann MD (Electronically Signed) Final Date: 17 June 2022 15:03 S
[2022-06-13] MEDS: regadenoson 0.4 Mg/5 ml Syringe IVP (11:40)
[2022-06-13 12:00] VITALS: BP 137/83; PULSE 76
== END 2022-06-13 09:27 | disposition home or self-care (01) ==
PROVIDERS: PCP Registered Nurse Neonatal Intensive Care; Visit Provider Internal Medicine Cardiovascular Disease
DX: R07.9 Chest pain, unspecified (principal); I25.9 Chronic ischemic heart disease, unspecified
CPT/HCPCS: 78452; 93017; A9500; J2785

== ENCOUNTER → 2023-09-29 10:44 | Outpatient (BNVA) | payer BC, MEDICAID, SELFPAY | PROVIDERS: PCP Registered Nurse Neonatal Intensive Care; Referring Provider Nurse Practitioner Family; Visit Provider Internal Medicine | DX: E11.9 Type 2 diabetes mellitus without complications (principal); R79.89 Other specified abnormal findings of blood chemistry; M25.552 Pain in left hip; Z79.899 Other long term (current) drug therapy | CPT/HCPCS: 36415; 73502; 80053; 80061; 82044; 83036; 84439; 84443 ==